=== PATIENT | male | born 1995 | race Caucasian/White ===

== ENCOUNTER → 2024-11-02 15:18 | Outpatient (CLI) | payer OTHER, SELFPAY ==
--- NOTE | 2024-11-02 15:21 | DI.RAD.S_ITS ---
PROCEDURE: FL JOINT INJECTION LARGE RT INDICATIONS: RT SHOULDER AND UPPER ARM INJURY COMPARISON: None. TECHNIQUE: The indications, alternatives, benefits, risks, and complications of the procedure were explained to the patient. Written informed consent was obtained and placed in the chart. The patient was placed in an appropriate position on the fluoroscopy table, and a site was chosen for percutaneous access under fluoroscopic guidance. The site was prepped and draped in a sterile fashion. Local anesthetic was administered using a 1% lidocaine solution. A hypodermic or spinal needle was then used to access the symptomatic joint. Intra-articular location of the needle tip was confirmed by injecting a small amount of contrast, followed by steroid administration. The needle was then withdrawn, and a bandage applied to the puncture site. FINDINGS: Joint injected: Right glenohumeral Medications injected: 5 mL of 40 mg/mL Kenalog and 0.5% Ropivacaine mixture. Patient's pain before injection: 4 out of 10. Patient's pain after injection: 1 out of 10. Complications: None. IMPRESSION: Successful fluoroscopically guided administration of steroid and anaesthetic solution into the right glenohumeral joint. Dictated by: Иван Dominguez M.D. on 11/02/2024 at 16:42 Approved by: Иван Dominguez M.D. on 11/02/2024 at 16:43
[2024-11-02] MEDS: LIDOCAINE 1% 20 ML INJ (15:44)
[2024-11-02] MEDS: ROPIVACAINE 0.5% PF 5 MG/ML 20ML VIAL 3 ML INJ (15:44)
[2024-11-02] MEDS: TRIAMCINOLONE 40 MG/ML VIAL INTRA-ARTI (15:45)
== END ==
PROVIDERS: Referring Provider Student in an Organized Health Care Education/Training Program; Visit Provider Student in an Organized Health Care Education/Training Program
DX: S49.90XA Unspecified injury of shoulder and upper arm, unspecified arm, initial encounter (principal); M25.511 Pain in right shoulder; G89.29 Other chronic pain
CPT/HCPCS: 20610; 77002; Q9967